=== PATIENT | male | born 1985 | race Caucasian/White ===

== ENCOUNTER 2016-04-23 07:07 | Emergency (ER) | payer OTHER ==
[2016-04-23 07:16] VITALS: BP 155/90; PULSE 85; TEMP 98.8; BMI 29.8
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
[2016-04-23] MEDS ORDERED: FLUORESCEIN NA 1 EA STRIP ONE (07:39)
[2016-04-23] MEDS ORDERED: TETRACAINE 0.5% OPHTH SOLN 2 ML BOTTLE ONE (07:40)
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
== END 2016-04-23 08:38 | disposition home or self-care (01) ==
LOC: JER 07:07
DX: S05.8X2A Other injuries of left eye and orbit, initial encounter (principal); Y35.811A Legal intervention involving manhandling, law enforcement official injured, initial encounter; Y93.89 Activity, other specified; Y92.89 Other specified places as the place of occurrence of the external cause; Y99.0 Civilian activity done for income or pay
CPT/HCPCS: 99282-25

== ENCOUNTER 2019-04-01 03:22 | Emergency (ER) | payer OTHER ==
[2019-04-01 03:44] VITALS: TEMP 98.7; BMI 29.8
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
[2019-04-01 04:27] VITALS: BP 137/81; PULSE 89
== END 2019-04-01 04:27 | disposition home or self-care (01) ==
LOC: JER 03:22
DX: M79.642 Pain in left hand (principal); Y35.891A Legal intervention involving other specified means, law enforcement official injured, initial encounter; Y93.89 Activity, other specified; Y92.410 Unspecified street and highway as the place of occurrence of the external cause; Y99.0 Civilian activity done for income or pay
CPT/HCPCS: 73130-TC-LT-FY; 99282-25

== ENCOUNTER 2021-12-26 19:14 | Emergency (ER) | payer OTHER ==
[2021-12-26 19:23] VITALS: BP 147/84; PULSE 98; RESP 18; TEMP 98.6; BMI 29.8
== END 2021-12-26 19:35 | disposition home or self-care (01) ==
LOC: FER 19:14
DX: Z77.21 Contact with and (suspected) exposure to potentially hazardous body fluids (principal)
CPT/HCPCS: 99282-25

== ENCOUNTER 2022-08-30 22:47 | Emergency (ER) | payer OTHER | END 2022-08-30 23:16 | disposition home or self-care (01) | LOC: FER 22:47 | DX: S80.01XA Contusion of right knee, initial encounter (principal); M25.561 Pain in right knee; W22.8XXA Striking against or struck by other objects, initial encounter; Y93.89 Activity, other specified; Y92.009 Unspecified place in unspecified non-institutional (private) residence as the place of occurrence of the external cause | CPT/HCPCS: 73562-TC-RT-FY; 99283-25 ==

== ENCOUNTER 2023-04-03 02:00 | Emergency (ER) | payer OTHER ==
[2023-04-03] MEDS ORDERED: IBUPROFEN 600 MG TABLET (FP) PO ONE ×2 (02:11→02:13)
[2023-04-03 02:12] VITALS: BP 140/95; PULSE 95; RESP 18; TEMP 99; BMI 29.1
== END 2023-04-03 02:25 | disposition home or self-care (01) ==
LOC: FER 02:00
DX: S60.041A Contusion of right ring finger without damage to nail, initial encounter (principal); W22.8XXA Striking against or struck by other objects, initial encounter; Y92.149 Unspecified place in prison as the place of occurrence of the external cause
CPT/HCPCS: 73130-TC-RT-FY; 99283-25

== ENCOUNTER 2023-05-31 20:08 | Emergency (ER) | payer OTHER ==
[2023-05-31 20:24] VITALS: BP 138/95; PULSE 70; RESP 18; TEMP 98; BMI 25.4
[2023-05-31] MEDS ORDERED: IBUPROFEN 600 MG TABLET (FP) PO ONE (20:24)
[2023-05-31] MEDS: IBUPROFEN 600 MG TABLET (FP) PO ONE (20:35)
== END 2023-05-31 20:54 | disposition home or self-care (01) ==
LOC: FER 20:08
DX: S01.511A Laceration without foreign body of lip, initial encounter (principal); W50.0XXA Accidental hit or strike by another person, initial encounter
CPT/HCPCS: 99283-25

== ENCOUNTER 2023-10-08 17:42 | Emergency (ER) | payer OTHER ==
[2023-10-08 18:00] VITALS: BP 145/99; PULSE 81; RESP 20; TEMP 97.7; BMI 28.5
[2023-10-08] MEDS ORDERED: IBUPROFEN 600 MG TABLET (FP) PO ONE (18:38)
== END 2023-10-08 19:12 | disposition home or self-care (01) ==
LOC: FER 17:42
DX: M25.561 Pain in right knee (principal); V49.50XA Passenger injured in collision with unspecified motor vehicles in traffic accident, initial encounter; Y92.410 Unspecified street and highway as the place of occurrence of the external cause
CPT/HCPCS: 73562-TC-RT-FY; 99283-25

== ENCOUNTER 2024-04-17 20:06 | Emergency (ER) | payer BC, OTHER ==
[2024-04-17] MEDS ORDERED: EPINEPHrine 1:1000 P/F - 1 MG/ML AMP ONE (20:15)
[2024-04-17] MEDS: EPINEPHrine 1:1,000 0.3 MG/0.3 ML SYR IM ONE (20:15)
[2024-04-17] MEDS ORDERED: ANAPHYLAXIS KIT ONE (20:15)
[2024-04-17] MEDS: DEXAMETHASONE SOD PHOSPHATE 10 MG/1 ML VIAL IVPUSH ONE (20:15)
[2024-04-17 20:16] VITALS: TEMP 98.9; BMI 28.5
[2024-04-17] MEDS ORDERED: FAMOTIDINE 10 MG/ML VIAL IVPB ONE (20:16)
[2024-04-17] MEDS ORDERED: DEXAMETHASONE SOD PHOSPHATE 10 MG/1 ML VIAL ONE (20:16)
[2024-04-17] MEDS ORDERED: FAMOTIDINE 20 MG/50 ML IVPB 20 MG/50 ML MG IVPB ONE (20:16)
[2024-04-17] MEDS: SODIUM CHLORIDE 1,000 ML IV STA (20:29)
[2024-04-17] MEDS: FAMOTIDINE 20 MG/50 ML IVPB 20 MG/50 ML MG IVPB ONE (20:29)
[2024-04-17 20:30] VITALS: RESP 14
[2024-04-17 20:42] VITALS: BP 117/81; PULSE 74
== END 2024-04-17 23:22 | disposition home or self-care (01) ==
LOC: JER 20:06
PROC: 3E033GC Introduction of Other Therapeutic Substance into Peripheral Vein, Percutaneous Approach (ICD-10-PCS; principal; 2024-04-17)
PROC: 3E033GC Introduction of Other Therapeutic Substance into Peripheral Vein, Percutaneous Approach (ICD-10-PCS; 2024-04-17)
PROC: 3E023GC Introduction of Other Therapeutic Substance into Muscle, Percutaneous Approach (ICD-10-PCS; 2024-04-17)
PROC: 3E0337Z Introduction of Electrolytic and Water Balance Substance into Peripheral Vein, Percutaneous Approach (ICD-10-PCS; 2024-04-17)
DX: L50.0 Allergic urticaria (principal); R42 Dizziness and giddiness; H53.9 Unspecified visual disturbance; R07.0 Pain in throat
CPT/HCPCS: 99284-25; J0171; J1100